=== PATIENT | female | born 1960 | race African-American/Black ===

== ENCOUNTER 2016-12-12 08:31 | Inpatient (IN) | payer OTHER ==
[~2016-12-12] VITALS: Ht 170.2 cm; Wt 79.9 kg
[2016-12-12] MEDS ORDERED: SODIUM CHLORIDE 0.9% 1,000 ML IV ONE ×2 (09:15→12:52)
[2016-12-12 09:53] LABS: BASOPHILS % 0.6 % (0.0-2.0); EOSINOPHILS % 0.1 % (0.0-5.0); HEMATOCRIT. 43.3 % (36.0-48.0); HEMOGLOBIN. 14.5 g/dL (12.0-16.0); LYMPHOCYTES % 28.9 % (20.0-50.0); MEAN CORPUSCULAR HEMOGLOBIN 28.2 pg (28.0-32.0); MEAN CORPUSCULAR VOLUME 84.5 fL (81.0-99.0); MEAN PLATELET VOLUME 8.2 fl (7.4-10.4); MONOCYTES % 14.7 % (2.0-8.0); NEUTROPHILS % 55.7 % (40.0-76.0); PLATELET 270 x1000/uL (130-400); RED BLOOD CELL COUNT 5.12 mill/uL (4.2-5.4); RED CELL DISTRIBUTION WIDTH 13.9 % (11.6-14.6)
[2016-12-12 09:58] LABS: CHLORIDE 96 mEq/L (98-107)
[2016-12-12 10:01] LABS: PROTHROMBIN TIME 10.5 sec
[2016-12-12 10:05] LABS: CARBON DIOXIDE 32 mEq/L (21-32)
[2016-12-12 11:09] LABS: CLARITY URINE CLEAR (CLEAR); COLOR URINE YELLOW (YELLOW); GLUCOSE URINE NEGATIVE (NEGATIVE); KETONES URINE TRACE (NEGATIVE); LEUKOCYTE ESTERASE URINE NEGATIVE (NEGATIVE); NITRITE URINE NEGATIVE (NEGATIVE); OCCULT BLOOD URINE 1+ (NEGATIVE); PROTEIN URINE NEGATIVE (NEGATIVE); SPECIFIC GRAVITY URINE 1.024 (1.005-1.030)
[2016-12-12] MEDS ORDERED: FAMOTIDINE 20MG/2ML VIAL IV ONE (11:30)
[2016-12-12] MEDS ORDERED: MORPHINE SULFATE 4 MG/ML CPJ (NOT FOR IM USE) IV ONE (11:30)
[2016-12-12] MEDS ORDERED: ONDANSETRON HCL 4MG/2ML VIAL IV ONE (11:30)
[2016-12-12] MEDS ORDERED: IOHEXOL-300 100 ML BOTTLE ONE (12:37)
[2016-12-12] MEDS ORDERED: SODIUM CHLORIDE 0.9% 10ML VIAL ONE (12:37)
[2016-12-12] MEDS ORDERED: PIPERACILLIN/TAZ 3.375G PREMIX 50 ML IV ONE (12:45)
[2016-12-12] MEDS ORDERED: HYDROMORPHONE HCL/PF 2MG/ML (OR) ONE (13:38)
[2016-12-12] MEDS ORDERED: FENTANYL CITRATE/PF 50MCG/ML 5ML VIAL ONE (13:38)
[2016-12-12] MEDS ORDERED: MIDAZOLAM HCL 2 MG/2 ML VIAL ONE (13:38)
[2016-12-12] MEDS ORDERED: BUPIVACAINE HCL 0.5% (5MG/ML) 50ML ONE (14:05)
[2016-12-12] MEDS ORDERED: ONDANSETRON HCL 4MG/2ML VIAL IV PRN (14:45)
[2016-12-12] MEDS ORDERED: FENTANYL CITRATE/PF 50MCG/ML 2ML VIAL IV PRN (14:45)
[2016-12-12] MEDS ORDERED: HYDROMORPHONE HCL/PF 2MG/ML CPJ IV PRN (14:45)
[2016-12-12] MEDS ORDERED: ACETAMINOPHEN 650MG SUPP PR PRN (15:15)
[2016-12-12] MEDS ORDERED: LABETALOL HCL 5MG/ML VIAL 20ML IV ONE (16:14)
[2016-12-12] MEDS ORDERED: ONDANSETRON INJ IV PRN (17:15)
[2016-12-12] MEDS ORDERED: DIPHENHYDRAMINE INJ IV PRN (17:15)
[2016-12-12] MEDS ORDERED: NALOXONE INJ IV PRN (17:15)
[2016-12-12] MEDS: HYDROMORPHONE PCA 10MG/50ML IV PRN (17:16)
[2016-12-12 20:00] VITALS: BP_SYST 152; BP_SYST 169; BP_DIAS 80; BP_DIAS 83
[2016-12-12] MEDS ORDERED: LEVOFLOXACIN 500MG PREMIX 100 ML IV SCH (20:00)
[2016-12-12] MEDS: DEXT 5%/0.45% NACL KCL 20MEQ/L 1,000 ML IV SCH (21:29)
[2016-12-12] MEDS: METRONIDAZOLE 500 MG PREMIX 100 ML IV SCH (21:30)
[2016-12-12] MEDS: FAMOTIDINE 20MG/2ML VIAL IV SCH (21:31)
[2016-12-13] VITALS: BP 168/81
[2016-12-13] MEDS: MORPHINE SULFATE 2 MG/ML CPJ (NOT FOR IM USE) IV PRN ×3 (01:44→09:11)
[2016-12-13] MEDS: METRONIDAZOLE 500 MG PREMIX 100 ML IV SCH ×2 (03:56→12:53)
[2016-12-13 04:00] VITALS: BP 165/94
[2016-12-13] MEDS: DEXT 5%/0.45% NACL KCL 20MEQ/L 1,000 ML IV SCH ×2 (05:52→21:39)
[2016-12-13] MEDS: ONDANSETRON HCL 4MG/2ML VIAL IV PRN (05:55)
[2016-12-13 06:11] LABS: BASOPHILS % 0.1 % (0.0-2.0); HEMATOCRIT. 36.5 % (36.0-48.0); HEMOGLOBIN. 11.8 g/dL (12.0-16.0); LYMPHOCYTES % 7.1 % (20.0-50.0); MEAN CORPUSCULAR HEMOGLOBIN 27.8 pg (28.0-32.0); MEAN CORPUSCULAR VOLUME 85.8 fL (81.0-99.0); MEAN PLATELET VOLUME 8.3 fl (7.4-10.4); MONOCYTES % 12.4 % (2.0-8.0); NEUTROPHILS % 80.4 % (40.0-76.0); PLATELET 238 x1000/uL (130-400); RED BLOOD CELL COUNT 4.25 mill/uL (4.2-5.4); RED CELL DISTRIBUTION WIDTH 14.5 % (11.6-14.6)
[2016-12-13 06:53] LABS: CARBON DIOXIDE 27 mEq/L (21-32); CHLORIDE 104 mEq/L (98-107)
[2016-12-13 08:00] VITALS: BP 148/77
[2016-12-13] MEDS: FAMOTIDINE 20MG/2ML VIAL IV SCH ×2 (09:11→21:40)
[2016-12-13 12:00] VITALS: BP 183/87
[2016-12-13 16:00] VITALS: BP 150/60
[2016-12-13 20:00] VITALS: BP 134/78
[2016-12-13] MEDS: HYDROMORPHONE PCA 10MG/50ML IV PRN (21:47)
[2016-12-14] VITALS: BP 153/74
[2016-12-14 04:00] VITALS: BP 149/83
[2016-12-14 07:05] LABS: HEMATOCRIT. 34.2 % (36.0-48.0); HEMOGLOBIN. 11.1 g/dL (12.0-16.0); MEAN CORPUSCULAR HEMOGLOBIN 27.7 pg (28.0-32.0); MEAN CORPUSCULAR VOLUME 85.4 fL (81.0-99.0); MEAN PLATELET VOLUME 8.4 fl (7.4-10.4); PLATELET 232 x1000/uL (130-400); RED CELL DISTRIBUTION WIDTH 14.3 % (11.6-14.6)
[2016-12-14 07:30] LABS: CARBON DIOXIDE 27 mEq/L (21-32); CHLORIDE 102 mEq/L (98-107)
[2016-12-14 08:00] VITALS: BP 153/70
[2016-12-14] MEDS: FAMOTIDINE 20MG/2ML VIAL IV SCH ×2 (08:43→20:41)
[2016-12-14] MEDS: DEXT 5%/0.45% NACL KCL 20MEQ/L 1,000 ML IV SCH ×2 (09:49→20:41)
[2016-12-14 12:00] VITALS: BP 139/68
[2016-12-14 14:17] LABS: PLATELET ESTIMATE NORMAL
[2016-12-14 16:00] VITALS: BP 137/75
[2016-12-14 20:00] VITALS: BP 151/62
[2016-12-15] VITALS: BP 146/81
[2016-12-15] MEDS: HYDROMORPHONE PCA 10MG/50ML IV PRN (03:35)
[2016-12-15 04:00] VITALS: BP 150/74
[2016-12-15 08:00] VITALS: BP 121/72
[2016-12-15] MEDS: FAMOTIDINE 20MG/2ML VIAL IV SCH ×2 (08:31→20:55)
[2016-12-15] MEDS: DEXT 5%/0.45% NACL KCL 20MEQ/L 1,000 ML IV SCH ×3 (08:31→19:30)
[2016-12-15] MEDS: ONDANSETRON HCL 4MG/2ML VIAL IV PRN (09:09)
[2016-12-15 10:13] LABS: BASOPHILS % 0.5 % (0.0-2.0); EOSINOPHILS % 0.2 % (0.0-5.0); HEMATOCRIT. 34.3 % (36.0-48.0); HEMOGLOBIN. 11.3 g/dL (12.0-16.0); LYMPHOCYTES % 19.6 % (20.0-50.0); MEAN CORPUSCULAR VOLUME 84.5 fL (81.0-99.0); MEAN PLATELET VOLUME 8.1 fl (7.4-10.4); MONOCYTES % 14.4 % (2.0-8.0); NEUTROPHILS % 65.3 % (40.0-76.0); PLATELET 278 x1000/uL (130-400); RED BLOOD CELL COUNT 4.05 mill/uL (4.2-5.4); RED CELL DISTRIBUTION WIDTH 14.4 % (11.6-14.6)
[2016-12-15 10:27] LABS: CARBON DIOXIDE 27 mEq/L (21-32); CHLORIDE 101 mEq/L (98-107)
[2016-12-15 12:00] VITALS: BP 160/89
[2016-12-15] MEDS: MORPHINE SULFATE 2 MG/ML CPJ (NOT FOR IM USE) IV PRN ×3 (14:10→20:55)
[2016-12-15 16:00] VITALS: BP 145/88
[2016-12-15 20:00] VITALS: BP 163/73
[2016-12-16] VITALS: BP 145/81
[2016-12-16] MEDS: MORPHINE SULFATE 2 MG/ML CPJ (NOT FOR IM USE) IV PRN ×4 (00:09→22:03)
[2016-12-16 04:00] VITALS: BP 156/85
[2016-12-16] MEDS: DEXT 5%/0.45% NACL KCL 20MEQ/L 1,000 ML IV SCH ×2 (06:12→15:45)
[2016-12-16 08:00] VITALS: BP 135/99
[2016-12-16] MEDS: FAMOTIDINE 20MG/2ML VIAL IV SCH ×2 (08:14→21:51)
[2016-12-16 12:00] VITALS: BP 141/84
[2016-12-16 13:30] LABS: BASOPHILS % 0.7 % (0.0-2.0); EOSINOPHILS % 0.2 % (0.0-5.0); HEMATOCRIT. 37.1 % (36.0-48.0); HEMOGLOBIN. 12.3 g/dL (12.0-16.0); LYMPHOCYTES % 23.7 % (20.0-50.0); MEAN CORPUSCULAR HEMOGLOBIN 28.1 pg (28.0-32.0); MEAN CORPUSCULAR VOLUME 84.9 fL (81.0-99.0); MONOCYTES % 14.1 % (2.0-8.0); NEUTROPHILS % 61.3 % (40.0-76.0); PLATELET 344 x1000/uL (130-400); RED BLOOD CELL COUNT 4.37 mill/uL (4.2-5.4); RED CELL DISTRIBUTION WIDTH 14.4 % (11.6-14.6)
[2016-12-16 13:41] LABS: CARBON DIOXIDE 27 mEq/L (21-32); CHLORIDE 102 mEq/L (98-107)
[2016-12-16 16:00] VITALS: BP 142/85
[2016-12-16 20:00] VITALS: BP 150/95
[2016-12-17] VITALS: BP 133/78
[2016-12-17 04:00] VITALS: BP 163/95
[2016-12-17] MEDS: MORPHINE SULFATE 2 MG/ML CPJ (NOT FOR IM USE) IV PRN (05:09)
[2016-12-17] MEDS: DEXT 5%/0.45% NACL KCL 20MEQ/L 1,000 ML IV SCH ×2 (06:51→18:06)
[2016-12-17 06:56] LABS: HEMATOCRIT. 36.3 % (36.0-48.0); MEAN CORPUSCULAR VOLUME 85.1 fL (81.0-99.0); MEAN PLATELET VOLUME 7.7 fl (7.4-10.4); PLATELET 374 x1000/uL (130-400); RED BLOOD CELL COUNT 4.27 mill/uL (4.2-5.4); RED CELL DISTRIBUTION WIDTH 14.3 % (11.6-14.6)
[2016-12-17 07:20] LABS: CARBON DIOXIDE 26 mEq/L (21-32); CHLORIDE 102 mEq/L (98-107)
[2016-12-17 08:00] VITALS: BP 122/73
[2016-12-17] MEDS: FAMOTIDINE 20MG/2ML VIAL IV SCH ×2 (10:26→22:58)
[2016-12-17] MEDS: HYDROCODONE/ACETAMINOPHEN 5/325MG TABLET PO PRN ×3 (11:30→22:58)
[2016-12-17 12:00] VITALS: BP 121/78
[2016-12-17 12:44] LABS: PLATELET ESTIMATE NORMAL
[2016-12-17 16:00] VITALS: BP 155/86
[2016-12-17 20:00] VITALS: BP 141/75
[2016-12-18] VITALS: BP 103/61
[2016-12-18] MEDS: DEXT 5%/0.45% NACL KCL 20MEQ/L 1,000 ML IV SCH ×2 (03:16→14:08)
[2016-12-18 04:00] VITALS: BP_SYST 150
[2016-12-18 08:00] VITALS: BP 167/87
[2016-12-18] MEDS: HYDROCODONE/ACETAMINOPHEN 5/325MG TABLET PO PRN ×3 (08:09→22:09)
[2016-12-18] MEDS: FAMOTIDINE 20MG/2ML VIAL IV SCH ×2 (09:01→22:11)
[2016-12-18 12:00] VITALS: BP 156/80
[2016-12-18 16:00] VITALS: BP 140/93
[2016-12-18 20:00] VITALS: BP 152/70
[2016-12-19] VITALS: BP 131/77
[2016-12-19] MEDS: DEXT 5%/0.45% NACL KCL 20MEQ/L 1,000 ML IV SCH ×3 (02:08→19:35)
[2016-12-19 04:00] VITALS: BP 144/70
[2016-12-19] MEDS: HYDROCODONE/ACETAMINOPHEN 5/325MG TABLET PO PRN ×3 (05:21→17:53)
[2016-12-19 08:00] VITALS: BP 161/82
[2016-12-19] MEDS: FAMOTIDINE 20MG/2ML VIAL IV SCH ×2 (09:07→20:17)
[2016-12-19 12:00] VITALS: BP 147/79
[2016-12-19 16:00] VITALS: BP 132/66
[2016-12-19 20:00] VITALS: BP 154/71
[2016-12-20] VITALS: BP 180/85
[2016-12-20] MEDS: DEXT 5%/0.45% NACL KCL 20MEQ/L 1,000 ML IV SCH ×2 (00:04→14:02)
[2016-12-20] MEDS: HYDROCODONE/ACETAMINOPHEN 5/325MG TABLET PO PRN ×4 (00:05→21:07)
[2016-12-20 04:00] VITALS: BP 169/77
[2016-12-20 08:00] VITALS: BP 166/87
[2016-12-20] MEDS: FAMOTIDINE 20MG/2ML VIAL IV SCH ×2 (08:55→21:01)
[2016-12-20 12:00] VITALS: BP 150/77
[2016-12-20 16:00] VITALS: BP 129/69
[2016-12-20 20:00] VITALS: BP 143/75
[2016-12-21] VITALS: BP 159/78
[2016-12-21] MEDS: DEXT 5%/0.45% NACL KCL 20MEQ/L 1,000 ML IV SCH ×2 (02:30→11:46)
[2016-12-21 04:00] VITALS: BP 136/81
[2016-12-21] MEDS: HYDROCODONE/ACETAMINOPHEN 5/325MG TABLET PO PRN ×3 (04:50→21:08)
[2016-12-21 08:00] VITALS: BP 141/77
[2016-12-21] MEDS: FAMOTIDINE 20MG/2ML VIAL IV SCH ×2 (09:39→20:59)
[2016-12-21 12:00] VITALS: BP 156/79
[2016-12-21 16:00] VITALS: BP 146/81
[2016-12-21 20:00] VITALS: BP 140/78
[2016-12-22] VITALS: BP 130/77
[2016-12-22 04:00] VITALS: BP 155/86
[2016-12-22 08:00] VITALS: BP 159/88
[2016-12-22] MEDS: FAMOTIDINE 20MG/2ML VIAL IV SCH (08:02)
[2016-12-22] MEDS: HYDROCODONE/ACETAMINOPHEN 5/325MG TABLET PO PRN (08:14)
[2016-12-22] MEDS ORDERED: HYDROCODONE/ACETAMINOPHEN 5/325MG TABLET PO PRN (10:30)
[2016-12-22 12:00] VITALS: BP 135/71
[2016-12-22 14:42] VITALS: BP 120/62
[2016-12-22 16:00] VITALS: BP 128/70
== END 2016-12-22 19:01 | disposition home or self-care (01) | DRG 329 ==
LOC: ER 10:36 → 6EST 12:39 → EDBEDREQ 12:42 → ENRESERV 13:26 → 6EST 12-13 09:32
PROVIDERS: ADMIT Internal Medicine; ATTEND Internal Medicine
PROC: 0DBN0ZZ Excision of Sigmoid Colon, Open Approach (ICD-10-PCS; principal; 2016-12-14)
PROC: 0D1N0Z4 Bypass Sigmoid Colon to Cutaneous, Open Approach (ICD-10-PCS; 2016-12-14)
DX: K57.20 Diverticulitis of large intestine with perforation and abscess without bleeding (principal); K65.9 Peritonitis, unspecified; K56.60 Unspecified intestinal obstruction; I10 Essential (primary) hypertension; E78.5 Hyperlipidemia, unspecified; E78.00 Pure hypercholesterolemia, unspecified; E03.9 Hypothyroidism, unspecified; E86.0 Dehydration; K76.0 Fatty (change of) liver, not elsewhere classified; K80.20 Calculus of gallbladder without cholecystitis without obstruction
CPT/HCPCS: 36415; 51702; 71010; 74010; 74177; 76705; 80048; 80053; 81001; 83690; 83735; 84100; 85025; 85610; 85730; 88305; 88307; 93005; 96361; 96365; 96375; 97116; 97162; 97530; 99291; A4216; C1893; J1170; J1200; J1956; J2250; J2270; J2405; J2543; J3010; J3490; J7030; Q9967